=== PATIENT | female | born 1990 | race American Indian/Alaskan Native ===

== ENCOUNTER 2022-07-22 20:53 | Emergency (ER) | payer MEDICAID, SELFPAY | END 2022-07-22 21:05 | disposition home or self-care (01) | LOC: ERS 20:53 | DX: J01.90 Acute sinusitis, unspecified (principal) | CPT/HCPCS: 99283 ==

== ENCOUNTER 2023-03-07 22:55 | Emergency (ER) | payer MEDICAID, SELFPAY ==
[2023-03-08] MEDS ORDERED: Ketorolac Tromethamine 30 MG (1 mL) VIAL ONE (00:39)
== END 2023-03-08 01:05 | disposition home or self-care (01) ==
LOC: ERS 22:55
DX: S16.1XXA Strain of muscle, fascia and tendon at neck level, initial encounter (principal); X58.XXXA Exposure to other specified factors, initial encounter
CPT/HCPCS: 96372; 99283; J1885